=== PATIENT | female | born 1970 | race Caucasian/White ===

== ENCOUNTER 2019-04-17 12:32 | Day surgery (SDC) | payer OTHER ==
[~2019-04-17] VITALS: Ht 165.1 cm; Wt 92.8 kg
[~2019-04-17 12:32] MED LIST: METF-849 PO; vitamin d
[2019-04-17 13:31] VITALS: Ht 165.1 cm; Wt 92.8 kg
--- NOTE | 2019-04-17 13:54 | PREAC ---
Date/Time of Note Date/Time of Note DATE: 04/17/19 TIME: 13:52 Anesthesia Eval and Record Evaluation Time Pre-Procedure Interview DATE: 04/17/19 TIME: 13:52 Age 48 Sex female NPO: 8 hrs Preoperative diagnosis screen for colorectal cancer / heart burn Planned procedure egd/ colonoscopy Past Medical History Past Medical History: Includes Cardio: Dyslipidemia Endo: Diabetes Hepatic: Other (fatty liver) GI: Obesity Surgery & Anesthesia Issues No known issue Meds Anticoagulation: No Beta Stephany within 24 hr: No Reason Beta Stephany not given: Pt. not on B-Stephany Reported Medications [vitamin d] No Conflict Check 04/17/19 Metformin* (Glucophage*) 500 Mg Tab, 500 MG PO WITH MEALS, #90 TAB 04/17/19 Meds reviewed: Yes Allergies Coded Allergies: No Known Allergy (Unverified , 04/17/19) Allergies Reviewed: Yes Labs/Studies Labs Reviewed: Reviewed by anesthesiologist test: N/A Pre-procedure Exam Airway: Adequate mouth opening Mallampati: Mallampati II Teeth: Normal Lung: Normal Heart: Normal ASA Physical Status ASA physical status: 2 Emergency: None Planned Anesthetic General/MAC: MAC Pre-operative Attestations Prior to commencing anesthesia and surgery, the patient was re-evaluated, there was verification of: *The patient's identity *The results of appropriate recent lab work and preoperative vital signs *The above evaluation not changing prior to induction *Anesthetic plan, risk benefits, alternative and complications discussed with patient/family; questions answered; patient/family understands, accepts and wishes to proceed. MANNY HDEZ Apr 17, 2019 13:53
[2019-04-17 14:00] VITALS: BP 134/84; PULSE 74; RESP 20
[2019-04-17] MEDS ORDERED: PROPOFOL 40 ML ONE (14:42)
[2019-04-17 16:02] VITALS: BP 116/60; RESP 20
--- NOTE | 2019-04-17 16:26 | PAC ---
Date/Time of Note Date/Time of Note DATE: 04/17/19 TIME: 16:24 Post-Anesthesia Notes Post-Anesthesia Note Last documented vital signs Vital Signs Date Temp Pulse Resp B/P (MAP) Pulse Ox O2 O2 Flow FiO2 Time Delivery Rate 04/17/19 20 116/60 94 16:02 (78) 04/17/19 97.8 74 Room Air 14:00 Activity: WNL Respiratory function: WNL Cardiovascular function: WNL Mental status: Baseline Pain reasonably controlled: Yes Hydration appropriate: Yes Nausea/Vomiting absent: Yes Comments BP: 116/60, HR: 74, RR: 14, SpO2: 94, BT: 98.5 TAMAR COHN MD Apr 17, 2019 16:26
== END 2019-04-17 15:54 | disposition home or self-care (01) ==
LOC: GIL 12:32
PROVIDERS: ATTEND Internal Medicine Gastroenterology
DX: Z12.11 Encounter for screening for malignant neoplasm of colon (principal); D12.5 Benign neoplasm of sigmoid colon; K29.50 Unspecified chronic gastritis without bleeding; K20.9 Esophagitis, unspecified; K29.80 Duodenitis without bleeding
CPT/HCPCS: 82962; 88305; 88312